=== PATIENT | male | born 1975 | race African-American/Black ===

== ENCOUNTER 2022-03-22 17:43 | Emergency (ER) | payer OTHER ==
[2022-03-22] MEDS ORDERED: PROMETHAZINE INJ 25 MG/ML AMP ONE (18:05)
[2022-03-22] MEDS ORDERED: NA CHLORIDE 0.9% 1,000 ML ONE (18:43)
[2022-03-22 19:06] LABS: Absolute Lymphocytes (CBC) 1.6 K/uL (0.7-4.9); Hematocrit 39.3 % (39.6-49.0); Lymphocytes % 17.4 % (15.3-44.8); MPV 7.3 fL (7.6-11.3); RBC Red Blood Cell Count 4.98 M/uL (4.33-5.43)
[2022-03-22 19:11] LABS: Protime INR 1.01
[2022-03-22 19:25] LABS: ALT/SGPT 21 U/L (12-78); AST/SGOT 15 U/L (15-37); Albumin 4.3 g/dL (3.4-5.0); Alkaline Phosphatase 116 U/L (45-117); BUN Blood Urea Nitrogen 15 mg/dL (7-18); Bicarbonate 25 mmol/L (21-32); Bilirubin Total 0.2 mg/dL (0.2-1.0); Glucose Level 142 mg/dL (74-106); Potassium 3.1 mmol/L (3.5-5.1); Protein, Total 7.9 g/dL (6.4-8.2); Sodium Level 140 mmol/L (136-145)
[2022-03-22 19:26] LABS: Bilirubin Direct < 0.1 mg/dL (0-0.2)
[2022-03-22 19:40] LABS: Urine Blood Trace-intact (Negative); Urine Glucose Negative (Negative); Urine Protein 3+ (Negative); Urine Specific Gravity 1.025 (1.005-1.030)
[2022-03-22] MEDS ORDERED: hydrOXYzine HCL 25 MG TAB ONE (19:47)
[2022-03-22 19:53] LABS: Barbiturates NEGATIVE (NEGATIVE); Benzodiazepines NEGATIVE (NEGATIVE); Cocaine NEGATIVE (NEGATIVE); METHAMPHETAM NEGATIVE (NEGATIVE); Methadone NEGATIVE (NEGATIVE); Opiates NEGATIVE (NEGATIVE); Phencyclidine NEGATIVE (NEGATIVE); THC Cannibis NEGATIVE (NEGATIVE)
--- NOTE | 2022-03-22 20:50 | EDPHYS ---
Physician Documentation [facility] Name: Josh Loving Age: 46 yrs Sex: Male : 1975 Arrival Date: 03/22/2022 Time: 17:44 Bed 17 Private MD: ED Physician Curry Mcclellan HPI: 03/22 18:00 This 46 yrs old Black Male presents to ER via EMS with complaints of Nausea, Dizziness. pm1 18:00 The patient presents to the emergency department with nausea, and anxiety. pm1 18:00 Onset: The symptoms/episode began/occurred today. Possible causes: Family stressors. pm1 The symptoms are aggravated by anxiety. Associated signs and symptoms: Pertinent positives: nausea, Pertinent negatives: abdominal pain, diarrhea, dysuria, fever, chest pain, shortness of breath. Severity of symptoms: in the emergency department the symptoms are unchanged Pain is currently a 0 / 10. The patient has not recently seen a physician. Patient was brought to the ER with complaints of nausea and anxiety. Patient's neighbors called EMS due to patient having an anxiety attack. Negative for homicidal or suicidal ideation. Historical: - Allergies: 17:50 No Known Allergies; ld1 - Immunization history:: Adult Immunizations not up to date, Client reports having NOT received the Covid vaccine. - Social history:: Smoking status: Patient denies any tobacco usage or history of. Patient/guardian denies using alcohol. ROS: 18:00 Constitutional: Negative for fever, chills, and weight loss, Cardiovascular: Negative pm1 for chest pain, palpitations, and edema, Respiratory: Negative for shortness of breath, cough, wheezing, and pleuritic chest pain. 18:00 Back: Negative for injury and pain, MS/Extremity: Negative for injury and deformity, Skin: Negative for injury, rash, and discoloration. 18:00 Abdomen/GI: Positive for nausea, Negative for abdominal pain, vomiting, diarrhea, constipation. 18:00 Neuro: Positive for dizziness, Negative for headache, numbness, tingling. 18:00 All other systems are negative. Exam: 18:00 Constitutional: This is a well developed, well nourished patient who is awake, alert, pm1 and in no acute distress. Head/Face: Normocephalic, atraumatic. 18:00 Back: No spinal tenderness. No costovertebral tenderness. Full range of motion. Skin: Warm, dry with normal turgor. Normal color with no rashes, no lesions, and no evidence of cellulitis. MS/ Extremity: Pulses equal, no cyanosis. Neurovascular intact. Full, normal range of motion. 18:00 Eyes: Exam is negative for acute changes, Periorbital structures: appear normal, Extraocular movements: no acute changes, Conjunctiva: no acute changes, no injection. 18:00 ENT: Exam is negative for acute changes, Mouth: no acute changes, Lips: normal, moist, Oral mucosa: normal, pink and intact, moist. 18:00 Cardiovascular: Exam negative for acute changes, Rate: tachycardic, Rhythm: regular, Pulses: no pulse deficits are appreciated, Heart sounds: normal, normal S1and S2. 18:00 Respiratory: Exam negative for acute changes, respiratory distress, shortness of breath, Breath sounds: are clear throughout. 18:00 Abdomen/GI: Inspection: abdomen appears normal, Palpation: abdomen is soft and non-tender, in all quadrants. 18:00 Neuro: Exam negative for acute changes, Orientation: is normal, Mentation: is normal, Motor: is normal, moves all fours. 18:00 Psych: Behavior/mood is anxious, Affect is animated, Oriented to person, place, time, Patient has no thoughts/intents to harm self or others. Vital Signs: 17:47 BP 187 / 122; Pulse 86; Resp 18; Pulse Ox 100% on R/A; ld1 17:49 BP 181 / 122; Pulse 78; Resp 20; Temp 98.1(O); Pulse Ox 99% on R/A; Weight 108.86 kg mb7 (R); Height 5 ft. 11 in. (180.34 cm) (R); 22:12 BP 172 / 92; Pulse 71; Resp 18; Pulse Ox 99% on R/A; kd3 17:49 Body Mass Index 33.47 (108.86 kg, 180.34 cm) mb7 MDM: 17:54 Patient medically screened. pm1 20:49 Data reviewed: vital signs. Data interpreted: Pulse oximetry: on room air is 99 %. pm1 Interpretation: normal. Counseling: I had a detailed discussion with the patient and/or guardian regarding: the historical points, exam findings, and any diagnostic results supporting the discharge/admit diagnosis, lab results, the need for outpatient follow up, to return to the emergency department if symptoms worsen or persist or if there are any questions or concerns that arise at home. 20:49 ED course: Discussed lab results and findings with patient. Patient continues to refuse pm1 to talk about the stressors that are triggering his anxiety. Patient requested additional anxiety medication. Will give the patient benzo in the ER and will discharge home with hydroxyzine. Instructed patient to follow up with his psychiatrist. 03/22 18:00 Order name: Acetaminophen; Complete Time: 19:47 pm1 03/22 18:00 Order name: Basic Metabolic Panel; Complete Time: 19:47 pm1 03/22 18:00 Order name: CBC with Diff; Complete Time: 19:47 pm1 03/22 18:00 Order name: ETOH Level; Complete Time: 19:47 pm1 03/22 18:00 Order name: Hepatic Function; Complete Time: 19:47 pm1 03/22 18:00 Order name: PT-INR; Complete Time: 19:25 pm1 03/22 18:00 Order name: Ptt, Activated; Complete Time: 19:25 pm1 03/22 18:00 Order name: Salicylate; Complete Time: 19:47 pm1 03/22 18:00 Order name: Urine Drug Screen; Complete Time: 20:44 pm1 03/22 19:40 Order name: Urine Dipstick-Ancillary; Complete Time: 19:47 EDMT 03/22 18:00 Order name: EKG; Complete Time: 18:01 pm1 03/22 18:00 Order name: EKG - Nurse/Tech; Complete Time: 19:41 pm1 03/22 18:00 Order name: IV Saline Lock; Complete Time: 18:04 pm1 03/22 18:00 Order name: Labs collected and sent; Complete Time: 18:53 pm1 03/22 18:00 Order name: Urine Dipstick-Ancillary (obtain specimen); Complete Time: 19:41 pm1 Administered Medications: 18:04 Drug: Phenergan (promethazine) 25 mg Route: IVP; Site: left forearm; bp 22:13 Follow up: Response: No adverse reaction kd3 18:10 Drug: NS 0.9% 1000 ml Route: IV; Rate: 1000 ml; Site: left forearm; bp 19:51 Drug: hydrOXYzine 50 mg Route: PO; kd3 22:13 Follow up: Response: No adverse reaction kd3 21:47 Drug: Valium (diazepam) 5 mg Route: PO; kd3 22:13 Follow up: Response: No adverse reaction kd3 22:12 Not Given (Patient Refused): Ondansetron 4 mg PO once kd3 Disposition Summary: 03/22/22 20:49 Discharge Ordered Location: Home pm1 Problem: new pm1 Symptoms: have improved pm1 Condition: Stable pm1 Diagnosis - Acute stress reaction pm1 Followup: pm1 - With: Emergency Department - When: As needed - Reason: Worsening of condition Followup: pm1 - With: Private Physician - When: 2 - 3 days - Reason: Recheck today's complaints, Continuance of care, Re-evaluation by your physician Discharge Instructions: - Discharge Summary Sheet pm1 - Stress, Adult pm1 - Managing Anxiety, Adult pm1 Forms: - Medication Reconciliation Form pm1 - Thank You Letter pm1 - Antibiotic Education pm1 - Prescription Opioid Use pm1 Prescriptions: - Hydroxyzine HCl 50 mg Oral Tablet - take 1 tablet by ORAL route every 8 hours As needed; 20 tablet; Refills: 0, pm1 Product Selection Permitted - promethazine 25 mg Oral Tablet - take 1 tablet by ORAL route every 6 hours As needed; 20 tablet; Refills: 0, pm1 Product Selection Permitted Signatures: Dispatcher [employer] EDCurry Vogel PA PA cp Marinas, Patrick, EMILY FUSING MACHINE OPERATOR pm1 Carlito Cowart RN RN bp Becca Urbano RN RN ld1 Kimberly Bobo RN RN kd3
--- NOTE | 2022-03-22 20:50 | ER ---
Nurse's Notes [facility] Name: Josh Loving Age: 46 yrs Sex: Male : 1975 Arrival Date: 03/22/2022 Time: 17:44 Bed 17 Private MD: Diagnosis: Acute stress reaction Presentation: 03/22 17:47 Chief complaint: EMS states: Toned out by pt neighbors for anxiety attack. Pt reports ld1 feeling overwhelmed. C/O nausea \T\ dizziness. Coronavirus screen: At this time, the client does not indicate any symptoms associated with coronavirus-19. Ebola Screen: No symptoms or risks identified at this time. Initial Sepsis Screen: Does the patient meet any 2 criteria? No. Patient's initial sepsis screen is negative. Does the patient have a suspected source of infection? No. Patient's initial sepsis screen is negative. Risk Assessment: Do you want to hurt yourself or someone else? Patient reports no desire to harm self or others. Onset of symptoms was March 22, 2022. 17:47 Method Of Arrival: EMS: [facility] ld1 19:19 Acuity: SHELDON 3 bb Triage Assessment: 17:50 General: Appears in no apparent distress. comfortable, Behavior is cooperative, ld1 anxious. Pain: Denies pain. EENT: No signs and/or symptoms were reported regarding the EENT system. Neuro: Level of Consciousness is awake, alert, obeys commands, Oriented to person, place, time, situation. Cardiovascular: Capillary refill < 3 seconds Patient's skin is warm and dry. Respiratory: Airway is patent Respiratory effort is even, unlabored. GI: Abdomen is round non-distended, Reports nausea. : No signs and/or symptoms were reported regarding the genitourinary system. Derm: No signs and/or symptoms reported regarding the dermatologic system. Musculoskeletal: No signs and/or symptoms reported regarding the musculoskeletal system. Historical: - Allergies: 17:50 No Known Allergies; ld1 - Immunization history:: Adult Immunizations not up to date, Client reports having NOT received the Covid vaccine. - Social history:: Smoking status: Patient denies any tobacco usage or history of. Patient/guardian denies using alcohol. Screenin:54 Abuse screen: Denies threats or abuse. Denies injuries from another. Nutritional bp screening: No deficits noted. Tuberculosis screening: No symptoms or risk factors identified. Fall Risk None identified. Assessment: 17:54 General: PT MAKING RETCHING NOISES WITHOUT VOMITUS. MD INFORMED. bp Vital Signs: 17:47 BP 187 / 122; Pulse 86; Resp 18; Pulse Ox 100% on R/A; ld1 17:49 BP 181 / 122; Pulse 78; Resp 20; Temp 98.1(O); Pulse Ox 99% on R/A; Weight 108.86 kg mb7 (R); Height 5 ft. 11 in. (180.34 cm) (R); 22:12 BP 172 / 92; Pulse 71; Resp 18; Pulse Ox 99% on R/A; kd3 17:49 Body Mass Index 33.47 (108.86 kg, 180.34 cm) mb7 ED Course: 17:44 Patient arrived in ED. ds1 17:50 Triage completed. ld1 17:50 Patient has correct armband on for positive identification. Bed in low position. Call mb7 light in reach. Side rails up X 1. Door closed. Noise minimized. 17:50 Arm band placed on right wrist. ld1 17:51 Carlito Cowart, DUANE is Primary Nurse. bp 17:54 Teodoro Johnson, EMILY is PHCP. pm1 17:54 Curry Mcclellan MD is Attending Physician. pm1 18:00 Maintain EMS IV. Dressing intact. Good blood return noted. Site clean \T\ dry. Gauge \T\ bp site: 20 G LEFT FA. 19:20 Primary Nurse role handed off by Carlito Cowart RN mw2 19:33 Kimberly Bobo RN is Primary Nurse. kd3 22:12 No provider procedures requiring assistance completed. IV discontinued, intact, kd3 bleeding controlled, No redness/swelling at site. Pressure dressing applied. Administered Medications: 18:04 Drug: Phenergan (promethazine) 25 mg Route: IVP; Site: left forearm; bp 22:13 Follow up: Response: No adverse reaction kd3 18:10 Drug: NS 0.9% 1000 ml Route: IV; Rate: 1000 ml; Site: left forearm; bp 19:51 Drug: hydrOXYzine 50 mg Route: PO; kd3 22:13 Follow up: Response: No adverse reaction kd3 21:47 Drug: Valium (diazepam) 5 mg Route: PO; kd3 22:13 Follow up: Response: No adverse reaction kd3 22:12 Not Given (Patient Refused): Ondansetron 4 mg PO once kd3 Outcome: 20:49 Discharge ordered by . pm1 22:13 Discharged to home ambulatory. kd3 22:13 Condition: stable 22:13 Condition: stable 22:13 Discharge instructions given to patient, Instructed on discharge instructions, follow up and referral plans. medication usage, Demonstrated understanding of instructions, follow-up care, medications, Prescriptions given X 2. 22:14 Patient left the ED. kd3 Signatures: Rosenda Zurita ds1 Alma Martinez RN RN bb Teodoro Johnson, EMILY SOFTWARE QUALITY AUTOMATION ENGINEER pm1 Carlito Cowart RN RN bp Blaise Dahl mw2 Becca Urbano RN RN ld1 Kimberly Bobo RN RN kd3 Marie Muse mb7 Corrections: (The following items were deleted from the chart) 19:20 17:47 Acuity: SHELODN 4 ld1 bb
[2022-03-22] MEDS ORDERED: DIAZEPAM 5 MG TABLET ONE (21:45)
[2022-03-22 22:59] VITALS: TEMP 98.1; O2SAT 99
[2022-03-22 23:01] VITALS: BP 172/92
--- NOTE | 2022-03-23 08:57 | EKG ---
Test Date: 2022-03-22 Test Time: 19:28:19 Computer Recycling Worker: MARCE MEASUREMENT RESULTS: Intervals: Rate: 100 AZ: 190 QRSD: 94 QT: 372 QTc: 479 [place]aney: P: 57 AZ: 190 QRS: 60 T: 27 INTERPRETIVE STATEMENTS: Normal sinus rhythm Right atrial enlargement Minimal voltage criteria for LVH, may be normal variant Nonspecific ST and T wave abnormality Prolonged QT Abnormal ECG No previous ECG available for comparison Electronically Signed On 03-23-22 08:56:09 CDT by Jonnathan Billy
== END 2022-03-22 22:14 | disposition home or self-care (01) ==
LOC: ER 17:43
DX: F43.0 Acute stress reaction (principal)
CPT/HCPCS: 93005; 85025; 80048; 36415; 80320; 80329 ×2; 85610; 80076; 85730; 81003; 80307; 96374; 99283; J2550; J7030

== ENCOUNTER 2022-03-23 15:17 | Emergency (ER) | payer OTHER ==
--- NOTE | 2022-03-23 16:52 | RAD REPORT ---
EXAM DESCRIPTION: RAD - Chest Single View - 03/23/2022 4:40 pm CLINICAL HISTORY: COUGH Chest pain. COMPARISON: No comparisons FINDINGS: Portable technique limits examination quality. The lungs are grossly clear. The heart is normal in size. No displaced fractures. IMPRESSION: No acute intrathoracic process suspected.
[2022-03-23] MEDS ORDERED: POTASSIUM 25 MEQ EFFERV TAB ONE (16:58)
[2022-03-23] MEDS ORDERED: AMLODIPINE 10 MG TAB ONE (16:58)
[2022-03-23] MEDS ORDERED: HYDRALAZINE HCL 10 MG TABLET ONE ×2 (17:21→18:31)
[2022-03-23] MEDS ORDERED: cloNIDine HCL 0.1 MG TAB ONE (18:31)
--- NOTE | 2022-03-23 18:36 | ER ---
Nurse's Notes [facility] Name: Josh Loving Age: 46 yrs Sex: Male : 1975 Arrival Date: 03/23/2022 Time: 15:18 Bed 27 Private MD: Diagnosis: Essential (primary) hypertension;Obesity, unspecified;Unspecified kidney failure-renal insufficency;Proteinuria, unspecified Presentation: 03/23 15:56 Chief complaint: Patient states: was seen here last night and his BP was high, was iw given medication for anxiety but now wants a prescription for BP meds. Coronavirus screen: At this time, the client does not indicate any symptoms associated with coronavirus-19. Ebola Screen: Patient negative for fever greater than or equal to 101.5 degrees Fahrenheit, and additional compatible Ebola Virus Disease symptoms Patient denies exposure to infectious person. Patient denies travel to an Ebola-affected area in the 21 days before illness onset. No symptoms or risks identified at this time. Initial Sepsis Screen: Does the patient meet any 2 criteria? No. Patient's initial sepsis screen is negative. Does the patient have a suspected source of infection? No. Patient's initial sepsis screen is negative. Risk Assessment: Do you want to hurt yourself or someone else? Patient reports no desire to harm self or others. Onset of symptoms was March 23, 2022. 15:56 Method Of Arrival: Wheelchair iw 15:56 Acuity: SHELDON 3 iw Triage Assessment: 19:05 General: Appears in no apparent distress. comfortable, Behavior is calm, cooperative, ld1 appropriate for age. Pain: Denies pain. Historical: - Allergies: 15:58 No Known Allergies; iw - Home Meds: 15:58 lamotrigine oral [Active]; BuSpar Oral [Active]; quetiapine oral [Active]; iw - PMHx: 15:58 Depressive disorder; iw - Immunization history:: Adult Immunizations up to date, Client reports receiving the 2nd dose of the Covid vaccine. - Family history:: not pertinent. - Social history:: Smoking status: Patient denies any tobacco usage or history of. Patient/guardian denies using alcohol. Screenin:03 Abuse screen: Denies threats or abuse. Denies injuries from another. Nutritional ld1 screening: No deficits noted. On no prescribed diet. Tuberculosis screening: No symptoms or risk factors identified. Fall Risk None identified. Assessment: 17:17 Reassessment: Notified ERP of VS. See MAR for orders. ld1 Vital Signs: 15:56 BP 196 / 122; Pulse 99; Resp 16; Temp 99.1; Pulse Ox 99% on R/A; iw 16:51 BP 195 / 124; Pulse 88; Resp 18; Pulse Ox 99% on R/A; ld1 17:17 BP 208 / 135; Pulse 94; Resp 18; Pulse Ox 97% on R/A; ld1 18:10 BP 204 / 129; Pulse 83; Resp 18; Pulse Ox 97% on R/A; ld1 ED Course: 15:18 Patient arrived in ED. am2 15:58 Triage completed. iw 15:59 Arm band placed on. iw 16:04 Curry Mcclellan MD is Attending Physician. kaden 16:25 Becca Urbano, RN is Primary Nurse. ld1 16:42 XRAY Chest (1 view) In Process Unspecified. EDMS 18:35 Bradly Greer MD is Referral Physician. kaden 18:35 Jonnathan Billy MD is Referral Physician. kaden 18:35 Srinivas Gama MD is Referral Physician. kaden 19:03 Patient has correct armband on for positive identification. Placed in gown. Bed in low ld1 position. Call light in reach. Side rails up X2. teacher [employer] on. Pulse ox on. NIBP on. Door closed. Noise minimized. Warm blanket given. 19:03 No provider procedures requiring assistance completed. Patient did not have IV access ld1 during this emergency room visit. Administered Medications: 16:45 CANCELLED (Duplicate Order): NS 0.9% 1000 ml IV at 125 ml/hr continuous kaden 16:55 Not Given (Not in pyxiss): Maxzide (triamterene-hydrochlorothiazide) (37.5 mg-25 mg) 1 ld1 caps PO once 16:56 Drug: Norvasc (amlodipine) 10 mg Route: PO; ld1 18:41 Follow up: Response: No adverse reaction ld1 16:56 Drug: Potassium Effervescent Tablet 25 mEq Route: PO; ld1 18:41 Follow up: Response: No adverse reaction ld1 17:17 Drug: hydrALAZINE 20 mg Route: PO; ld1 18:41 Follow up: Response: No adverse reaction ld1 18:27 Drug: hydrALAZINE 10 mg Route: PO; ld1 18:41 Follow up: Response: No adverse reaction ld1 18:27 Drug: cloNIDine 0.1 mg Route: PO; ld1 18:41 Follow up: Response: No adverse reaction ld1 18:40 Drug: Coreg (carvedilol) 12.5 mg Route: PO; ld1 18:41 Follow up: Response: No adverse reaction ld1 Outcome: 18:35 Discharge ordered by MD. alfonso 19:03 Discharged to home ambulatory. ld1 19:03 Condition: stable 19:03 Discharge instructions given to patient, Instructed on discharge instructions, follow up and referral plans. medication usage, Demonstrated understanding of instructions, follow-up care, medications, Prescriptions given X 3. 19:06 Patient left the ED. ld1 Signatures: Dispatcher [employer] EDCurry Phan MD MD cha Williams, Irene, RN Lucy Laguerre Lauren, RN RN ld1
--- NOTE | 2022-03-23 18:36 | EDPHYS ---
Physician Documentation [facility] Name: Josh Loving Age: 46 yrs Sex: Male : 1975 Arrival Date: 03/23/2022 Time: 15:18 Bed 27 Private MD: MERLY Physician Curry Mcclellan HPI: 03/23 17:04 This 46 yrs old Black Male presents to ER via Wheelchair with complaints of worsening kaden of symptoms. 17:04 The patient has elevated blood pressure and discovered this at home. Onset: The kaden symptoms/episode began/occurred today, yesterday. Modifying factors: The symptoms are aggravated by activity, The symptoms are alleviated by remaining still. Associated signs and symptoms: The patient has no apparent associated signs or symptoms. Severity of symptoms: At its worst the blood pressure was moderate, in the emergency department the blood pressure is unchanged. The patient has experienced similar episodes in the past, multiple times. Historical: - Allergies: 15:58 No Known Allergies; iw - Home Meds: 15:58 lamotrigine oral [Active]; BuSpar Oral [Active]; quetiapine oral [Active]; iw - PMHx: 15:58 Depressive disorder; iw - Immunization history:: Adult Immunizations up to date, Client reports receiving the 2nd dose of the Covid vaccine. - Family history:: not pertinent. - Social history:: Smoking status: Patient denies any tobacco usage or history of. Patient/guardian denies using alcohol. ROS: 17:04 Constitutional: Negative for fever, chills, and weight loss, Eyes: Negative for injury, kaden pain, redness, and discharge, ENT: Negative for injury, pain, and discharge, Neck: Negative for injury, pain, and swelling, Cardiovascular: Negative for chest pain, palpitations, and edema, Respiratory: Negative for shortness of breath, cough, wheezing, and pleuritic chest pain, Abdomen/GI: Negative for abdominal pain, nausea, vomiting, diarrhea, and constipation, Back: Negative for injury and pain, : Negative for injury, bleeding, discharge, and swelling, MS/Extremity: Negative for injury and deformity, Skin: Negative for injury, rash, and discoloration, Neuro: Negative for headache, weakness, numbness, tingling, and seizure, Psych: Negative for depression, anxiety, suicide ideation, homicidal ideation, and hallucinations, Allergy/Immunology: Negative for hives, rash, and allergies, Endocrine: Negative for neck swelling, polydipsia, polyuria, polyphagia, and marked weight changes, Hematologic/Lymphatic: Negative for swollen nodes, abnormal bleeding, and unusual bruising. Exam: 17:04 Constitutional: This is a well developed, well nourished patient who is awake, alert, kaden and in no acute distress. Head/Face: Normocephalic, atraumatic. Eyes: Pupils equal round and reactive to light, extra-ocular motions intact. Lids and lashes normal. Conjunctiva and sclera are non-icteric and not injected. Cornea within normal limits. Periorbital areas with no swelling, redness, or edema. ENT: Nares patent. No nasal discharge, no septal abnormalities noted. Tympanic membranes are normal and external auditory canals are clear. Oropharynx with no redness, swelling, or masses, exudates, or evidence of obstruction, uvula midline. Mucous membranes moist. Neck: Trachea midline, no thyromegaly or masses palpated, and no cervical lymphadenopathy. Supple, full range of motion without nuchal rigidity, or vertebral point tenderness. No Meningismus. Chest/axilla: Normal chest wall appearance and motion. Nontender with no deformity. No lesions are appreciated. Cardiovascular: Regular rate and rhythm with a normal S1 and S2. No gallops, murmurs, or rubs. Normal PMI, no JVD. No pulse deficits. Respiratory: Lungs have equal breath sounds bilaterally, clear to auscultation and percussion. No rales, rhonchi or wheezes noted. No increased work of breathing, no retractions or nasal flaring. Abdomen/GI: Soft, non-tender, with normal bowel sounds. No distension or tympany. No guarding or rebound. No evidence of tenderness throughout. Back: No spinal tenderness. No costovertebral tenderness. Full range of motion. Male : Normal genitalia with no discharge or lesions. Skin: Warm, dry with normal turgor. Normal color with no rashes, no lesions, and no evidence of cellulitis. MS/ Extremity: Pulses equal, no cyanosis. Neurovascular intact. Full, normal range of motion. Neuro: Awake and alert, GCS 15, oriented to person, place, time, and situation. Cranial nerves II-XII grossly intact. Motor strength 5/5 in all extremities. Sensory grossly intact. Cerebellar exam normal. Normal gait. Psych: Awake, alert, with orientation to person, place and time. Behavior, mood, and affect are within normal limits. Vital Signs: 15:56 BP 196 / 122; Pulse 99; Resp 16; Temp 99.1; Pulse Ox 99% on R/A; iw 16:51 BP 195 / 124; Pulse 88; Resp 18; Pulse Ox 99% on R/A; ld1 17:17 BP 208 / 135; Pulse 94; Resp 18; Pulse Ox 97% on R/A; ld1 18:10 BP 204 / 129; Pulse 83; Resp 18; Pulse Ox 97% on R/A; ld1 MDM: 16:04 Patient medically screened. kaden 17:08 Differential diagnosis: hypertensive crisis, Malignant HTN. Data reviewed: vital signs, [facility] nurses notes, lab test result(s), EKG, radiologic studies, plain films. Data interpreted: conveyor monitor: rate is 88 beats/min, Pulse oximetry: on room air is 99 %. Test interpretation: by ED physician or midlevel provider: ECG, plain radiologic studies. Counseling: I had a detailed discussion with the patient and/or guardian regarding: the historical points, exam findings, and any diagnostic results supporting the discharge/admit diagnosis, lab results, radiology results, the need for outpatient follow up, for definitive care, a chief ophthalmic technician, a family practitioner. 18:38 Physician consultation: Srinivas Gama MD and will see patient in office, coreg, kaden hydralialetha phillips. 03/23 16:05 Order name: XRAY Chest (1 view); Complete Time: 18:22 [facility] 03/23 16:05 Order name: Cardiac monitoring; Complete Time: 16:46 [facility] 03/23 16:05 Order name: O2 Per Protocol; Complete Time: 16:56 [facility] 03/23 16:05 Order name: O2 Sat Monitoring; Complete Time: 16:56 [facility] 03/23 16:45 Order name: Blood Pressure Recheck; Complete Time: 16:51 kaden Administered Medications: 16:45 CANCELLED (Duplicate Order): NS 0.9% 1000 ml IV at 125 ml/hr continuous kaden 16:55 Not Given (Not in pyxiss): Maxzide (triamterene-hydrochlorothiazide) (37.5 mg-25 mg) 1 ld1 caps PO once 16:56 Drug: Norvasc (amlodipine) 10 mg Route: PO; ld1 18:41 Follow up: Response: No adverse reaction ld1 16:56 Drug: Potassium Effervescent Tablet 25 mEq Route: PO; ld1 18:41 Follow up: Response: No adverse reaction ld1 17:17 Drug: hydrALAZINE 20 mg Route: PO; ld1 18:41 Follow up: Response: No adverse reaction ld1 18:27 Drug: hydrALAZINE 10 mg Route: PO; ld1 18:41 Follow up: Response: No adverse reaction ld1 18:27 Drug: cloNIDine 0.1 mg Route: PO; ld1 18:41 Follow up: Response: No adverse reaction ld1 18:40 Drug: Coreg (carvedilol) 12.5 mg Route: PO; ld1 18:41 Follow up: Response: No adverse reaction ld1 Disposition Summary: 03/23/22 18:35 Discharge Ordered Location: Home kaden Problem: new kaden Symptoms: have improved kaden Condition: Stable kaden Diagnosis - Essential (primary) hypertension kaden - Obesity, unspecified kaden - Unspecified kidney failure - renal insufficency kaden - Proteinuria, unspecified kaden Followup: kaden - With: Private Physician - When: 2 - 3 days - Reason: Recheck today's complaints, Continuance of care, Re-evaluation by your physician Followup: kaden - With: - When: 2 - 3 days - Reason: Recheck today's complaints, Continuance of care, Re-evaluation by your physician Followup: kaden - With: - When: 2 - 3 days - Reason: Recheck today's complaints, Re-evaluation by your physician Followup: kaden - With: - When: 2 - 3 days - Reason: Recheck today's complaints, Re-evaluation by your physician Discharge Instructions: - Discharge Summary Sheet kaden - Hypertension, Adult kaden - Obesity, Adult kaden - Hypertension, Adult, [id number] kaden - How to Take Your Blood Pressure, [id number] kaden - Aspirin and Your Heart kaden - Chronic Kidney Disease, Adult, [id number] kaden - Chronic Kidney Disease, Adult kaden - Managing Your Hypertension kaden - Low-Sodium Eating Plan kaden Forms: - Medication Reconciliation Form kaden - Thank You Letter kaden - Antibiotic Education kaden - Prescription Opioid Use kaden Prescriptions: - Norvasc 10 mg Oral Tablet - take 1 tablet by ORAL route once daily; 30 tablet; Refills: 0, Product kaden Selection Permitted - Hydralazine 25 mg Oral Tablet - take 1 tablet by ORAL route 3 times per day with food; 60 tablet; Refills: 0, [facility] Product Selection Permitted - Coreg 12.5 mg Oral tablet - take 1 tablet by ORAL route 2 times per day with food; 60 tablet; Refills: 0, [id number] Product Selection Permitted Signatures: Dispatcher [employer] EDCurry Phan MD MD cha Williams, Irene, RN RN iw Becca Urbano RN RN ld1 Corrections: (The following items were deleted from the chart) 15:26 15:26 Chest Pa And Lat (2 Views) ordered. [facility] EDMS 16:45 16:05 NS 0.9% 1000 ml IV at 125 ml/hr continuous ordered. [facility] 16:46 16:05 EKG - Nurse/Tech ordered. [facility] 16:46 16:05 Urine Dipstick-Ancillary ordered. [facility] 16:49 16:06 BASIC METABOLIC PANEL+C.LAB.BRZ ordered. EDMS EDMS 16:49 16:06 CBC+H.LAB.BRZ ordered. EDMS EDMS 16:49 16:06 HEPATIC FUNCTION+C.LAB.BRZ ordered. EDMS EDMS 16:49 16:06 MAGNESIUM+C.LAB.BRZ ordered. EDMS EDMS 16:49 16:06 PROBNP+C.LAB.BRZ ordered. EDMS EDMS 16:49 16:06 PROTIME (+INR)+COAG.LAB.BRZ ordered. EDMS EDMS 16:49 16:06 Troponin High Sensitivity+C.LAB.BRZ ordered. EDMS EDMS 16:49 16:06 LIPASE+C.LAB.BRZ ordered. EDMS EDMS
[2022-03-23] MEDS ORDERED: carvediloL 6.25 MG TAB ONE (18:45)
[2022-03-23 21:58] VITALS: TEMP 99.1
[2022-03-23 22:01] VITALS: O2SAT 97
[2022-03-23 22:02] VITALS: BP 204/129
== END 2022-03-23 19:06 | disposition home or self-care (01) ==
LOC: ER 15:17
DX: I10 Essential (primary) hypertension (principal); R80.9 Proteinuria, unspecified; N28.9 Disorder of kidney and ureter, unspecified; E66.9 Obesity, unspecified; F32.A Depression, unspecified
CPT/HCPCS: 71045; 99284